=== PATIENT | male | born 1960 | race Caucasian/White ===

== ENCOUNTER → 2019-04-04 07:58 | Outpatient (CLI) | payer MEDICARE, SELFPAY ==
--- NOTE | 2019-04-04 08:12 | CT_ITS ---
STUDY: CT CHEST WITHOUT CONTRAST REASON FOR EXAM: Male, 58 years old. Lung nodule follow-up RADIATION DOSAGE (If Supplied By Facility): CTDIvol = ( 20.15 ) mGy, DLP = ( 709.90 ) mGycm TECHNIQUE: Transaxial imaging was performed without the administration of intravenous contrast material. Individualized dose optimization techniques were used for this CT. COMPARISON: No previous studies or reports are available for comparison. FINDINGS: There is a nodule of the left lower lobe measuring 6.8 mm, image 80 series 4. There is a 6.4 mm nodule of the right lower lobe image 92 series 4. There is a 2.7 mm nodule of the posterior left costophrenic angle image 95 series 4. There is a 4.2 mm nodule of the right lower lobe image 66 series 4. There is a pleural-based right middle lobe nodule measuring 5.6 mm, image 71 series 4. There is no demonstrated pleural abnormality. Normal heart and pericardium. Normal mediastinum. Normal hilar regions. Normal unenhanced pulmonary arteries. There are calcified plaques of the aortic arch. There are possible hemangiomas of the T10 and T12 vertebral bodies. There is a fat-containing right adrenal mass measuring 6.9 x 5.2 cm most likely representing a myelolipoma. CT/Chest without Contrast IMPRESSION: Bilateral pulmonary nodules as described above. Appropriate follow-up using Fleischner Society criteria is recommended. Possible hemangiomas of the T10 and T12 vertebral bodies. Fat-containing right adrenal mass measuring 6.9 x 5.2 cm most likely representing a myelolipoma. Electronically Signed: Wyatt Ordaz MD at 17:04 EDT , Service support ,
== END ==
PROVIDERS: Family Provider Nurse Practitioner Family; PCP Nurse Practitioner Family; Referring Provider Nurse Practitioner Family; Visit Provider Nurse Practitioner Family
DX: R91.8 Other nonspecific abnormal finding of lung field (principal)
CPT/HCPCS: 71250